=== PATIENT | male | born 1970 | race Caucasian/White ===

== ENCOUNTER 2016-07-19 08:38 | Emergency (ER) | payer OTHER ==
[~2016-07-19] VITALS: Ht 177.8 cm; Wt 95.7 kg
[~2016-07-19 08:38] MED LIST: ASPIRIN325 MG PO; ATORVASTATIN CA40 MG PO; CHANTIX1 MG PO; CRESTOR40 MG PO; FLOMAX0.4 MG PO; HYDROCHLOROTHIA25 MG PO; LEVAQUIN750 MG PO; LOPRESSOR25 MG PO; NITROSTAT0.4 MG SL; PERCOCET 5/31 TABLET PO; PRILOSEC40 MG PO; RAPAFLO8 MG PO; ZOFRAN4 MG PO
[2016-07-19] MEDS ORDERED: LO-DOSE ASPIRIN81 M2 PO (09:01)
[2016-07-19 09:47] LABS: HEMATOCRIT 46.3 % (38.0-50.0); MCH 30.4 PG (29.0-34.0); MCHC 34.1 G/DL (30.0-36.0); MEAN PLAT.VOLUME 9.7 uM^3 (9.0-12.4); PLATELET COUNT 265 K/uL (156-360); RBC DIS.WIDTH-CV 12.9 % (11.8-14.6); RBC DIS.WIDTH-SD 42.3 % (39-53)
[2016-07-19 09:54] LABS: CHLORIDE 103 mEq/L (99-109); POTASSIUM 3.4 mEq/L (3.7-5.4); SODIUM 140 mEq/L (136-147)
[2016-07-19 09:56] LABS: GLUCOSE 119 mg/dL (70-99)
[2016-07-19 09:58] LABS: ANION GAP 11 MEQ/L (2-14)
[2016-07-19 10:00] LABS: GFR ESTIMATE (CALCULATED) > 59 mL/min/
[2016-07-19 10:01] LABS: UREA NITROGEN (BUN) 22 mg/dL (9-23)
[2016-07-19] MEDS ORDERED: CIPRO500 MG PO (10:54)
[2016-07-19] MEDS ORDERED: PERCOCET 5/31 TABLET PO (10:54)
[2016-07-19] MEDS ORDERED: ZOFRAN ODT4 MG PO (10:54)
[2016-07-19] MEDS ORDERED: FLAGYL500 MG PO (10:54)
[2016-07-19 11:32] VITALS: BP 108/85
== END 2016-07-19 11:25 | disposition home or self-care (01) ==
LOC: EME 08:38
PROVIDERS: Emergency Medicine
DX: K57.32 Diverticulitis of large intestine without perforation or abscess without bleeding (principal); D72.829 Elevated white blood cell count, unspecified; I10 Essential (primary) hypertension; E78.5 Hyperlipidemia, unspecified; Z87.442 Personal history of urinary calculi; Z87.891 Personal history of nicotine dependence; Z88.8 Allergy status to other drugs, medicaments and biological substances
CPT/HCPCS: 74176; 80048; 81003; 85027; 99281; 99285; J1885; J2405; J7030

== ENCOUNTER 2017-05-09 18:17 | Inpatient (IN) | payer OTHER ==
[~2017-05-09] VITALS: Ht 175.3 cm; Wt 100.2 kg
[~2017-05-09 18:17] MED LIST changes: +CIPRO500 MG PO; +FLAGYL500 MG PO; +LO-DOSE ASPIRIN81 M2 PO; +ZOFRAN ODT4 MG PO
[2017-05-09 19:14] LABS: HEMATOCRIT 46.4 % (38.0-50.0); HEMOGLOBIN 15.9 G/DL (12.5-16.6); MCH 30.7 PG (29.0-34.0); MCHC 34.3 G/DL (30.0-36.0); MCV 89.6 FL (86-99); PLATELET COUNT 246 K/uL (156-360); RBC DIS.WIDTH-CV 13.7 % (11.8-14.6); RBC DIS.WIDTH-SD 45.3 % (39-53); RED BLOOD COUNT 5.18 M/uL (4.00-5.50); WHITE BLOOD COUNT 19.4 K/uL (4.1-10.2)
[2017-05-09 19:25] LABS: CHLORIDE 100 mEq/L (99-109); POTASSIUM 4.2 mEq/L (3.7-5.4); SODIUM 136 mEq/L (136-147)
[2017-05-09 19:28] LABS: GLUCOSE 123 mg/dL (70-99)
[2017-05-09 19:31] LABS: ALKALINE PHOSPHATASE 77 IU/L (3-129); CREATININE 1.2 mg/dL (0.6-1.3); GFR ESTIMATE (CALCULATED) > 59 mL/min/ (58.99-99999)
[2017-05-09 19:32] LABS: UREA NITROGEN (BUN) 15 mg/dL (9-23)
[2017-05-09 19:32] LABS: APPEARANCE CLEAR ((CLEAR)); BILIRUBIN NEGATIVE; BLOOD NEGATIVE; COLOR YELLOW ((YELLOW)); GLUCOSE (STRIP) NEGATIVE; KETONES NEGATIVE; LEUKOCYTES NEGATIVE; NITRITE NEGATIVE; PROTEIN (STRIP) 30; SPECIFIC GRAVITY 1.018 (1.000-1.030); UCUL ADDED? NO; UROBILINOGEN 0.2 MG/DL (0.2-1.0)
[2017-05-09 19:33] LABS: AST (GOT) 17 IU/L (2-34)
[2017-05-09 19:34] LABS: ALT (GPT) 34 IU/L (3-49)
[2017-05-09] MEDS ORDERED: INDOCIN50 MG PO (21:04)
[2017-05-09] MEDS ORDERED: CENTRUM MEN'S1 EACH PO (21:05)
[2017-05-10 00:55] VITALS: BP 118/73
[2017-05-10 01:02] LABS: C-REACTIVE PROTEIN 107.2 MG/L (0-10)
[2017-05-10 01:34] LABS: C DIFF TOXIN NEGATIVE (NEGATIVE)
[2017-05-10 05:10] VITALS: BP 118/75
[2017-05-10 07:05] VITALS: BP 136/68
[2017-05-10 07:11] LABS: BASOPHIL (%) 0.1 % (0-1); EOSINOPHIL (%) 0.1 % (0-5); HEMATOCRIT 43.4 % (38.0-50.0); HEMOGLOBIN 14.3 G/DL (12.5-16.6); IMMATURE GRANULOCYTE (%) 0.7 % (0.0-0.7); LYMPHOCYTE (%) 6.9 % (15-42); LYMPHOCYTE COUNT 1.2 K/uL (1.0-2.8); MCH 29.7 PG (29.0-34.0); MCHC 32.9 G/DL (30.0-36.0); MONOCYTE (%) 9.8 % (3-12); MONOCYTE COUNT 1.6 K/uL (0-0.8); NEUTROPHIL (%) 82.4 % (45-76); NEUTROPHIL COUNT 13.8 K/uL (1.8-6.4); PLATELET COUNT 222 K/uL (156-360); RBC DIS.WIDTH-CV 13.9 % (11.8-14.6); RBC DIS.WIDTH-SD 46.5 % (39-53); RED BLOOD COUNT 4.82 M/uL (4.00-5.50); WHITE BLOOD COUNT 16.8 K/uL (4.1-10.2)
[2017-05-10 07:42] LABS: ALBUMIN 3.5 G/DL (3.2-4.8); ALKALINE PHOSPHATASE 62 IU/L (3-129); ALT (GPT) 23 IU/L (3-49); AST (GOT) 12 IU/L (2-34); CHLORIDE 101 MEQ/L (99-109); CREATININE 1.1 MG/DL (0.6-1.3); DIRECT BILIRUBIN 0.5 mg/dL (0.0-0.3); GFR ESTIMATE (CALCULATED) > 59 mL/min/ (58.99-99999); GLUCOSE 129 mg/dL (70-99); POTASSIUM 3.9 MEQ/L (3.7-5.4); SODIUM 139 MEQ/L (136-147); TOTAL BILIRUBIN 1.9 MG/DL (0.0-1.0); TOTAL PROTEIN 5.7 G/DL (6.4-8.3); UREA NITROGEN (BUN) 16 mg/dL (9-23)
[2017-05-10 12:05] VITALS: BP 119/72
[2017-05-10 16:03] VITALS: BP 143/73
[2017-05-10 20:18] VITALS: BP 122/77
[2017-05-11 02:11] VITALS: BP 121/73
[2017-05-11 04:00] VITALS: BP 132/74
[2017-05-11 08:10] VITALS: BP 136/86
[2017-05-11 12:04] LABS: HEMATOCRIT 45.5 % (38.0-50.0); HEMOGLOBIN 15.3 G/DL (12.5-16.6); MCH 30.6 PG (29.0-34.0); MCHC 33.6 G/DL (30.0-36.0); PLATELET COUNT 244 K/uL (156-360); RBC DIS.WIDTH-CV 13.8 % (11.8-14.6); RBC DIS.WIDTH-SD 46.9 % (39-53); WHITE BLOOD COUNT 14.7 K/uL (4.1-10.2)
[2017-05-11 12:31] LABS: ALBUMIN 3.6 G/DL (3.2-4.8); ALKALINE PHOSPHATASE 63 IU/L (3-129); ALT (GPT) 20 IU/L (3-49); AST (GOT) 12 IU/L (2-34); C-REACTIVE PROTEIN 232.4 MG/L (0-10); CHLORIDE 103 MEQ/L (99-109); GFR ESTIMATE (CALCULATED) > 59 mL/min/ (58.99-99999); GLUCOSE 118 mg/dL (70-99); POTASSIUM 3.8 MEQ/L (3.7-5.4); SODIUM 140 MEQ/L (136-147); UREA NITROGEN (BUN) 23 mg/dL (9-23)
[2017-05-11 12:32] LABS: TOTAL BILIRUBIN 1.1 MG/DL (0.0-1.0); TOTAL PROTEIN 6.7 G/DL (6.4-8.3)
[2017-05-11 16:51] VITALS: BP 135/87
[2017-05-12 00:35] VITALS: BP 128/82
[2017-05-12 07:20] VITALS: BP 120/78
[2017-05-12 09:11] LABS: HEMATOCRIT 43.4 % (38.0-50.0); HEMOGLOBIN 14.2 G/DL (12.5-16.6); MCH 29.6 PG (29.0-34.0); MCHC 32.7 G/DL (30.0-36.0); MCV 90.6 FL (86-99); PLATELET COUNT 294 K/uL (156-360); RBC DIS.WIDTH-CV 13.5 % (11.8-14.6); RBC DIS.WIDTH-SD 45.5 % (39-53); RED BLOOD COUNT 4.79 M/uL (4.00-5.50); WHITE BLOOD COUNT 13.6 K/uL (4.1-10.2)
[2017-05-12 09:23] LABS: CHLORIDE 102 MEQ/L (99-109); GFR ESTIMATE (CALCULATED) > 59 mL/min/ (58.99-99999); GLUCOSE 119 mg/dL (70-99); POTASSIUM 4.5 MEQ/L (3.7-5.4); SODIUM 139 MEQ/L (136-147); UREA NITROGEN (BUN) 19 mg/dL (9-23)
[2017-05-12 11:27] VITALS: BP 119/76
[2017-05-12 19:50] VITALS: BP 135/78
[2017-05-12 23:39] VITALS: BP 117/73
[2017-05-13 07:51] VITALS: BP 139/87
[2017-05-13 08:21] LABS: HEMATOCRIT 41.7 % (38.0-50.0); HEMOGLOBIN 13.9 G/DL (12.5-16.6); MCH 29.9 PG (29.0-34.0); MCHC 33.3 G/DL (30.0-36.0); MCV 89.7 FL (86-99); PLATELET COUNT 287 K/uL (156-360); RBC DIS.WIDTH-CV 13.4 % (11.8-14.6); RBC DIS.WIDTH-SD 44.5 % (39-53); RED BLOOD COUNT 4.65 M/uL (4.00-5.50); WHITE BLOOD COUNT 10.3 K/uL (4.1-10.2)
[2017-05-13 08:52] LABS: C-REACTIVE PROTEIN 73.8 MG/L (0-10); CHLORIDE 106 MEQ/L (99-109); GFR ESTIMATE (CALCULATED) > 59 mL/min/ (58.99-99999); GLUCOSE 98 mg/dL (70-99); POTASSIUM 3.9 MEQ/L (3.7-5.4); SODIUM 142 MEQ/L (136-147); UREA NITROGEN (BUN) 17 mg/dL (9-23)
[2017-05-13 15:20] VITALS: BP 140/92
[2017-05-13 23:26] VITALS: BP 128/80
[2017-05-14 07:03] LABS: BASOPHIL (%) 0.4 % (0-1); EOSINOPHIL (%) 0.7 % (0-5); EOSINOPHIL COUNT 0.1 K/uL (0-0.3); HEMATOCRIT 43.4 % (38.0-50.0); HEMOGLOBIN 14.6 G/DL (12.5-16.6); IMMATURE GRANULOCYTE (%) 0.9 % (0.0-0.7); LYMPHOCYTE (%) 10.5 % (15-42); LYMPHOCYTE COUNT 1.1 K/uL (1.0-2.8); MCH 30.5 PG (29.0-34.0); MCHC 33.6 G/DL (30.0-36.0); MCV 90.8 FL (86-99); MONOCYTE (%) 9.4 % (3-12); MONOCYTE COUNT 0.9 K/uL (0-0.8); NEUTROPHIL (%) 78.1 % (45-76); NEUTROPHIL COUNT 7.8 K/uL (1.8-6.4); PLATELET COUNT 279 K/uL (156-360); RBC DIS.WIDTH-CV 13.4 % (11.8-14.6); RBC DIS.WIDTH-SD 45.2 % (39-53); RED BLOOD COUNT 4.78 M/uL (4.00-5.50)
[2017-05-14 07:31] LABS: ALBUMIN 3.5 G/DL (3.2-4.8); ALKALINE PHOSPHATASE 56 IU/L (3-129); ALT (GPT) 33 IU/L (3-49); CHLORIDE 104 MEQ/L (99-109); CREATININE 0.9 MG/DL (0.6-1.3); DIRECT BILIRUBIN 0.2 mg/dL (0.0-0.3); GFR ESTIMATE (CALCULATED) > 59 mL/min/ (58.99-99999); GLUCOSE 94 mg/dL (70-99); POTASSIUM 3.8 MEQ/L (3.7-5.4); SODIUM 143 MEQ/L (136-147); TOTAL BILIRUBIN 0.9 MG/DL (0.0-1.0); UREA NITROGEN (BUN) 20 mg/dL (9-23)
[2017-05-14 07:34] LABS: AST (GOT) 30 IU/L (2-34); TOTAL PROTEIN 5.6 G/DL (6.4-8.3)
[2017-05-14 08:00] VITALS: BP 131/81
[2017-05-14 16:15] VITALS: BP 117/83
[2017-05-15 00:42] VITALS: BP 127/82
[2017-05-15 07:00] VITALS: BP 122/78
[2017-05-15] MEDS ORDERED: ULTRAM50 MG PO (11:33)
[2017-05-15] MEDS ORDERED: METRONIDAZOLE500 MG PO (11:33)
[2017-05-15] MEDS ORDERED: CIPROFLOXACIN500 M1 PO (11:33)
== END 2017-05-15 13:05 | disposition home or self-care (01) | DRG 392 ==
LOC: EME 18:17 → 2EASTP 23:00 → EDOF 23:00 → ENRESERV 23:01 → 2EASTP 05-10 00:36
PROVIDERS: Hospitalist; Internal Medicine; Physician Assistant; Student in an Organized Health Care Education/Training Program
PROC: 5A09357 Assistance with Respiratory Ventilation, Less than 24 Consecutive Hours, Continuous Positive Airway Pressure (ICD-10-PCS; principal; 2017-05-09)
DX: K57.20 Diverticulitis of large intestine with perforation and abscess without bleeding (principal); K56.0 Paralytic ileus; I10 Essential (primary) hypertension; K21.9 Gastro-esophageal reflux disease without esophagitis; E78.5 Hyperlipidemia, unspecified; G47.30 Sleep apnea, unspecified; M10.9 Gout, unspecified; E66.9 Obesity, unspecified; Z68.32 Body mass index [BMI] 32.0-32.9, adult; Z87.442 Personal history of urinary calculi; Z87.891 Personal history of nicotine dependence
CPT/HCPCS: 74018; 74176; 74177; 76000; 80048; 80048 91; 80053; 80076; 81003; 83605; 85025; 85027; 86140; 87040; 87493; 94660; 94799; 99281; 99285; J0744; J1650; J1885; J2270; J2405; J2765; J3010; J7030; S0028; S0030

== ENCOUNTER → 2017-06-02 | Outpatient (CLI) | payer OTHER ==
[~2017-06-02] MED LIST changes: +CENTRUM MEN'S1 EACH PO; +CIPROFLOXACIN500 M1 PO; +INDOCIN50 MG PO; +METRONIDAZOLE500 MG PO; +ULTRAM50 MG PO
== END | disposition home or self-care (01) ==
LOC: CDC 10:23
DX: Z01.810 Encounter for preprocedural cardiovascular examination (principal); K57.32 Diverticulitis of large intestine without perforation or abscess without bleeding; R94.31 Abnormal electrocardiogram [ECG] [EKG]
CPT/HCPCS: 93000

== ENCOUNTER 2017-06-16 21:34 | Inpatient (IN) | payer OTHER ==
[~2017-06-16] VITALS: Ht 175.3 cm; Wt 88.9 kg
[2017-06-17 06:50] VITALS: BP 109/75
[2017-06-17 13:46] VITALS: BP 120/67
[2017-06-17 19:36] VITALS: BP 152/73
[2017-06-17 23:43] VITALS: BP 130/76
[2017-06-18 03:08] VITALS: BP 108/60
[2017-06-18 06:12] LABS: BASOPHIL (%) 0.2 % (0-1); EOSINOPHIL (%) 0.6 % (0-5); EOSINOPHIL COUNT 0.1 K/uL (0-0.3); HEMATOCRIT 37.9 % (38.0-50.0); HEMOGLOBIN 12.8 G/DL (12.5-16.6); IMMATURE GRANULOCYTE (%) 0.3 % (0.0-0.7); LYMPHOCYTE (%) 14.4 % (15-42); LYMPHOCYTE COUNT 1.5 K/uL (1.0-2.8); MCH 30.4 PG (29.0-34.0); MCHC 33.8 G/DL (30.0-36.0); MONOCYTE COUNT 1.1 K/uL (0-0.8); NEUTROPHIL (%) 74.5 % (45-76); NEUTROPHIL COUNT 7.9 K/uL (1.8-6.4); RBC DIS.WIDTH-CV 13.5 % (11.8-14.6); RBC DIS.WIDTH-SD 44.5 % (39-53); RED BLOOD COUNT 4.21 M/uL (4.00-5.50); WHITE BLOOD COUNT 10.5 K/uL (4.1-10.2)
[2017-06-18 06:18] LABS: PLATELET COUNT 220 K/uL (156-360)
[2017-06-18 06:51] LABS: CHLORIDE 103 MEQ/L (99-109); CREATININE 0.7 MG/DL (0.6-1.3); GFR ESTIMATE (CALCULATED) > 59 mL/min/ (58.99-99999); GLUCOSE 100 mg/dL (70-99); POTASSIUM 3.4 MEQ/L (3.7-5.4); SODIUM 138 MEQ/L (136-147); UREA NITROGEN (BUN) 9 mg/dL (9-23)
[2017-06-18 08:27] VITALS: BP 109/63
[2017-06-18 15:46] VITALS: BP 115/67
[2017-06-18 19:15] VITALS: BP 110/69
[2017-06-18 23:15] VITALS: BP 131/74
[2017-06-19 04:12] VITALS: BP 124/69
[2017-06-19 05:32] LABS: BASOPHIL (%) 0.2 % (0-1); EOSINOPHIL (%) 0.1 % (0-5); HEMATOCRIT 39.5 % (38.0-50.0); HEMOGLOBIN 12.9 G/DL (12.5-16.6); IMMATURE GRANULOCYTE (%) 0.5 % (0.0-0.7); LYMPHOCYTE (%) 6.7 % (15-42); LYMPHOCYTE COUNT 0.9 K/uL (1.0-2.8); MCH 29.1 PG (29.0-34.0); MCHC 32.7 G/DL (30.0-36.0); MCV 89.2 FL (86-99); MONOCYTE (%) 10.9 % (3-12); MONOCYTE COUNT 1.4 K/uL (0-0.8); NEUTROPHIL (%) 81.6 % (45-76); NEUTROPHIL COUNT 10.6 K/uL (1.8-6.4); PLATELET COUNT 237 K/uL (156-360); RBC DIS.WIDTH-CV 13.4 % (11.8-14.6); RBC DIS.WIDTH-SD 43.9 % (39-53); RED BLOOD COUNT 4.43 M/uL (4.00-5.50)
[2017-06-19 06:03] LABS: C-REACTIVE PROTEIN 116.9 MG/L (0-10); CHLORIDE 101 MEQ/L (99-109); CREATININE 0.8 MG/DL (0.6-1.3); GFR ESTIMATE (CALCULATED) > 59 mL/min/ (58.99-99999); GLUCOSE 112 mg/dL (70-99); POTASSIUM 3.6 MEQ/L (3.7-5.4); SODIUM 138 MEQ/L (136-147); UREA NITROGEN (BUN) 9 mg/dL (9-23)
[2017-06-19 08:12] VITALS: BP 128/84
[2017-06-19 10:52] VITALS: BP 126/82
[2017-06-19 15:30] VITALS: BP 132/81
[2017-06-20 00:02] VITALS: BP 124/60
[2017-06-20 06:45] LABS: BASOPHIL (%) 0.2 % (0-1); EOSINOPHIL (%) 1.8 % (0-5); EOSINOPHIL COUNT 0.2 K/uL (0-0.3); HEMATOCRIT 36.5 % (38.0-50.0); HEMOGLOBIN 12.2 G/DL (12.5-16.6); IMMATURE GRANULOCYTE (%) 0.5 % (0.0-0.7); LYMPHOCYTE (%) 8.2 % (15-42); LYMPHOCYTE COUNT 0.9 K/uL (1.0-2.8); MCH 29.8 PG (29.0-34.0); MCHC 33.4 G/DL (30.0-36.0); MONOCYTE COUNT 1.1 K/uL (0-0.8); NEUTROPHIL (%) 79.3 % (45-76); NEUTROPHIL COUNT 8.6 K/uL (1.8-6.4); PLATELET COUNT 215 K/uL (156-360); RBC DIS.WIDTH-CV 13.1 % (11.8-14.6); RBC DIS.WIDTH-SD 43.1 % (39-53); WHITE BLOOD COUNT 10.8 K/uL (4.1-10.2)
[2017-06-20 07:02] VITALS: BP 146/84
[2017-06-20 07:10] LABS: CHLORIDE 101 MEQ/L (99-109); CREATININE 0.7 MG/DL (0.6-1.3); GFR ESTIMATE (CALCULATED) > 59 mL/min/ (58.99-99999); POTASSIUM 4.3 MEQ/L (3.7-5.4); SODIUM 136 MEQ/L (136-147); UREA NITROGEN (BUN) 6 mg/dL (9-23)
[2017-06-20 07:11] LABS: GLUCOSE 83 mg/dL (70-99)
[2017-06-20 11:00] VITALS: BP 132/88
[2017-06-20 16:21] VITALS: BP 131/69
[2017-06-21 00:21] VITALS: BP 122/81
[2017-06-21 06:46] LABS: BASOPHIL (%) 0.3 % (0-1); EOSINOPHIL (%) 3.2 % (0-5); EOSINOPHIL COUNT 0.3 K/uL (0-0.3); HEMATOCRIT 39.3 % (38.0-50.0); HEMOGLOBIN 13.3 G/DL (12.5-16.6); IMMATURE GRANULOCYTE (%) 0.5 % (0.0-0.7); LYMPHOCYTE (%) 14.9 % (15-42); LYMPHOCYTE COUNT 1.5 K/uL (1.0-2.8); MCH 30.4 PG (29.0-34.0); MCHC 33.8 G/DL (30.0-36.0); MCV 89.9 FL (86-99); MONOCYTE (%) 10.4 % (3-12); NEUTROPHIL (%) 70.7 % (45-76); PLATELET COUNT 278 K/uL (156-360); RBC DIS.WIDTH-CV 13.1 % (11.8-14.6); RBC DIS.WIDTH-SD 43.3 % (39-53); RED BLOOD COUNT 4.37 M/uL (4.00-5.50); WHITE BLOOD COUNT 9.9 K/uL (4.1-10.2)
[2017-06-21 06:52] LABS: CHLORIDE 100 MEQ/L (99-109); CREATININE 0.7 MG/DL (0.6-1.3); GFR ESTIMATE (CALCULATED) > 59 mL/min/ (58.99-99999); GLUCOSE 99 mg/dL (70-99); POTASSIUM 3.7 MEQ/L (3.7-5.4); SODIUM 140 MEQ/L (136-147); UREA NITROGEN (BUN) 6 mg/dL (9-23)
[2017-06-21 07:24] VITALS: BP 133/76
[2017-06-21 16:43] VITALS: BP 124/78
[2017-06-21 20:04] VITALS: BP 134/80
[2017-06-22 07:23] VITALS: BP 110/74
[2017-06-22] MEDS ORDERED: PERCOCET 5/31 TABLET PO (09:45)
[2017-06-22] MEDS ORDERED: COLACE100 MG PO (09:45)
== END 2017-06-22 10:03 | disposition home or self-care (01) | DRG 330 ==
LOC: ENRESERV 21:34 → 2SOUTH 06-17 05:44 → 2EAST 06-17 05:44 → 2SOUTH 06-17 10:47 → ENRESERV 06-17 12:24 → 2EAST 06-17 13:45 → 2SOUTH 06-17 14:11 → ENRESERV 06-18 11:56 → 2EAST 06-18 12:56
PROVIDERS: Physician Assistant; Student in an Organized Health Care Education/Training Program
DX: K57.20 Diverticulitis of large intestine with perforation and abscess without bleeding (principal); N32.1 Vesicointestinal fistula; Z88.8 Allergy status to other drugs, medicaments and biological substances; R91.8 Other nonspecific abnormal finding of lung field
CPT/HCPCS: 80048; 82150 91; 82948; 85025; 86140; 87070; 87075; 87205; 88305; 88307; 94799; J0131; J1170; J1650; J2250; J2405; J2710; J2795; J3475; J7120; J7643; S0020; S0074

== ENCOUNTER → 2017-06-16 | Outpatient (CLI) | payer OTHER ==
[~2017-06-16] VITALS: Ht 175.3 cm; Wt 88.9 kg
[~2017-06-16] MED LIST changes: +LIPITOR40 MG PO
== END | disposition home or self-care (01) ==
LOC: AMB 08:13
PROC: 3E0H8GC Introduction of Other Therapeutic Substance into Lower GI, Via Natural or Artificial Opening Endoscopic (ICD-10-PCS; principal; 2017-06-16)
DX: K57.30 Diverticulosis of large intestine without perforation or abscess without bleeding (principal); K64.8 Other hemorrhoids; R10.11 Right upper quadrant pain; I10 Essential (primary) hypertension; E66.9 Obesity, unspecified; Z80.6 Family history of leukemia; Z82.49 Family history of ischemic heart disease and other diseases of the circulatory system; Z87.891 Personal history of nicotine dependence; Z79.82 Long term (current) use of aspirin; Z80.42 Family history of malignant neoplasm of prostate
CPT/HCPCS: J0131; J1170; J2250; J2795; J3475